=== PATIENT | female | born 1990 | race Caucasian/White ===

== ENCOUNTER → 2021-01-16 17:09 | Outpatient (CLI) | payer OTHER, SELFPAY ==
[2021-01-19 11:08] LABS: Chlamydia By Nucleic Acid AMP Negative (Negative)
[2021-01-21 15:02] LABS: Gonococcus By Nucleic Acid AMP Negative (Negative)
[2021-01-22 16:44] LABS: HPV APTIMA, High Risk Negative (Negative)
== END ==
PROVIDERS: PCP Family Medicine; Visit Provider Obstetrics & Gynecology
DX: Z34.80 Encounter for supervision of other normal pregnancy, unspecified trimester (principal)
CPT/HCPCS: 87491; 87591; 87624; 88175; G0145

== ENCOUNTER → 2021-02-04 15:34 | Outpatient (CLI) | payer OTHER, SELFPAY ==
[2021-02-04 15:57] LABS: Absolute Lymphocyte Count 3.18 X10^3/uL (0.83-4.51); Basophil# 0.05 X10^3/uL; Basophil% 0.5 % (0-1); Eosinophil# 0.15 X10^3/uL; Eosinophils% 1.6 % (0-5); Hematocrit 36.4 % (37-47); Hemoglobin 12.1 g/dL (12.0-15.0); Lymphocyte # 3.18 X10^3/ul (0.83-4.51); Lymphocyte % 34.4 % (19-41); Mean Corp Hgb Conc 33.2 g/dL (32-36); Mean Corpuscular Hgb 30.3 pg (27.0-32.0); Mean Corpuscular Volume 91.2 fL (81-99); Mean Platelet Vol. 9.1 fl (6.2-12.0); Monocyte# 0.82 X10^3/uL; Monocyte% 8.9 % (0-10); NRBC Flagged by Analyzer 0 % (0-5); Neutrophil # 5.02 X10^3/uL (2.7-7.7); Neutrophil % 54.4 % (47-70); Platelet Count 316 K/mm3 (150-450); RBC Distribution Width CV 13.4 % (11.6-14.6); RBC Distribution Width SD 45.1 fl (35.1-43.9); Red Blood Count 3.99 M/mm3 (4.2-5.4); White Blood Count 9.2 K/mm3 (4.4-11.0)
[2021-02-04 16:49] LABS: NATERA MAILED SPECIMEN
[2021-02-05 08:57] LABS: HIV - WCH Non-Reactive (Nonreactive); Hepatitis B Surface Antigen Non-Reactive (Nonreactive); Hepatitis C Antibody Non-Reactive (Nonreactive); Rubella IgG Reactive (Nonreactive); Syphilis Antibodies Non-reactive
== END ==
LOC: PAVLAB 15:36
PROVIDERS: PCP Family Medicine; Referring Provider Obstetrics & Gynecology; Visit Provider Obstetrics & Gynecology
DX: Z34.80 Encounter for supervision of other normal pregnancy, unspecified trimester (principal)
CPT/HCPCS: 36415; 85025; 86703; 86762; 86780; 86803; 86850; 86900; 86901; 87340

== ENCOUNTER → 2021-02-14 18:19 | Outpatient (CLI) | payer OTHER, SELFPAY ==
[2021-02-14 18:39] LABS: Amphetamine Urine VISTA NEGATIVE (<1000 ng/mL); Barbiturate Urine VISTA NEGATIVE (< 200 ng/mL); Benzodiazepine Urine VISTA NEGATIVE (< 200 ng/mL); Cocaine Urine VISTA NEGATIVE (< 300 ng/mL); Ecstacy Urine VISTA NEGATIVE (< 500 ng/mL); Methadone Urine VISTA NEGATIVE (< 300 ng/mL); PCP Urine VISTA NEGATIVE (< 25 ng/mL); THC Urine VISTA NEGATIVE (< 50 ng/mL); Vista UDS pH Range 6
== END ==
PROVIDERS: PCP Family Medicine; Visit Provider Obstetrics & Gynecology
DX: Z34.80 Encounter for supervision of other normal pregnancy, unspecified trimester (principal)
CPT/HCPCS: 80307; 87086; 87088

== ENCOUNTER 2021-06-07 08:14 | Outpatient (CLI) | payer OTHER, SELFPAY ==
[2021-06-07 08:51] LABS: Absolute Lymphocyte Count 1.88 X10^3/uL (0.83-4.51); Absolute Neutrophil Count 6.1 X10^3/uL (2.0-7.7); Basophil# 0.04 X10^3/uL; Basophil% 0.4 % (0-1); Eosinophil# 0.22 X10^3/uL; Eosinophils% 2.5 % (0-5); Hematocrit 32.2 % (37-47); Hemoglobin 10.2 g/dL (12.0-15.0); Lymphocyte # 1.88 X10^3/ul (0.83-4.51); Lymphocyte % 21.1 % (19-41); Mean Corp Hgb Conc 31.7 g/dL (32-36); Mean Corpuscular Hgb 29.6 pg (27.0-32.0); Mean Corpuscular Volume 93.3 fL (81-99); Mean Platelet Vol. 9.5 fl (6.2-12.0); Monocyte# 0.64 X10^3/uL; Monocyte% 7.2 % (0-10); NRBC Flagged by Analyzer 0 % (0-5); Neutrophil # 6.08 X10^3/uL (2.7-7.7); Neutrophil % 68.4 % (47-70); Platelet Count 374 K/mm3 (150-450); RBC Distribution Width CV 13.2 % (11.6-14.6); RBC Distribution Width SD 45.3 fl (35.1-43.9); Red Blood Count 3.45 M/mm3 (4.2-5.4); White Blood Count 8.9 K/mm3 (4.4-11.0)
[2021-06-07 09:12] LABS: Glucose Challenge Gest 1H 50g 103 mg/dL (70-140)
== END 2021-06-07 23:59 | disposition home or self-care (01) ==
LOC: PAVLAB 08:15
PROVIDERS: PCP Family Medicine; Referring Provider Obstetrics & Gynecology; Visit Provider Obstetrics & Gynecology
DX: Z34.80 Encounter for supervision of other normal pregnancy, unspecified trimester (principal)
CPT/HCPCS: 36415; 82950; 85025

== ENCOUNTER → 2021-08-02 | Outpatient (CLI) | payer OTHER, SELFPAY | END | disposition home or self-care (01) | PROVIDERS: PCP Family Medicine; Visit Provider Obstetrics & Gynecology | DX: Z34.93 Encounter for supervision of normal pregnancy, unspecified, third trimester (principal) | CPT/HCPCS: 87081 ==

== ENCOUNTER 2021-08-23 15:52 | Outpatient (CLI) | payer OTHER, SELFPAY ==
[2021-08-23] VITALS (10 sets, daily range): BP systolic 109–124; BP diastolic 71–86; PULSE 86–112; TEMP 37.7; O2SAT 100; BMI 28.8
[2021-08-23 17:09] LABS: Hematocrit 32.3 % (37-47); Hemoglobin 10.1 g/dL (12.0-15.0); Mean Corp Hgb Conc 31.3 g/dL (32-36); Mean Corpuscular Hgb 25.7 pg (27.0-32.0); Mean Corpuscular Volume 82.2 fL (81-99); Mean Platelet Vol. 11.2 fl (6.2-12.0); Platelet Count 313 K/mm3 (150-450); RBC Distribution Width CV 16.7 % (11.6-14.6); RBC Distribution Width SD 49.2 fl (35.1-43.9); Red Blood Count 3.93 M/mm3 (4.2-5.4); White Blood Count 9.4 K/mm3 (4.4-11.0)
[2021-08-23 17:28] LABS: AST(SGOT) 39 U/L (15-37); Alanine Aminotransfer ALT/SGPT 25 U/L (13-56); Creatinine, Serum 0.71 mg/dL (0.55-1.02); EST Glomerular Filtration Rate 101 mL/min (>60); Est Glom Filt Rate - Afr Amer 122 mL/min (>60); Estimated Creatinine Clearance 85.84 ml/min; Uric Acid 5.5 mg/dL (2.6-6.0)
[2021-08-23 17:42] LABS: Creatinine, Urine (random) < 13.00 mg/dL (NO RANGE EST.); Protein, Urine (Random) < 6.0 mg/dL (<11.9)
--- NOTE | 2021-08-24 15:19 | OB.TRI.PN_ITS ---
Progress Notes Progress Note: Patient presents for triage evaluation secondary to headache elevated bps in office FHT: 130 Moderate variability reactive no decelerations category I tracing [place]: no regular Contractions Assessment and plan: complex migraine Reactive NST, symptoms resolved all normal bps. borderline ast all other labs WNL negative urine protein normal bps. reassuring maternal and status patient discharged to home to follow-up in 24 hours, send home with 24 hour urine, repeat labs tomorrow. See problem list details for additional plan information. Laboratory Studies: Laboratory Tests 08/23/21 08/23/21 08/23/21 Range/Units 16:25 16:25 16:25 WBC (4.4-11.0) K/mm3 RBC (4.2-5.4) M/mm3 Hgb (12.0-15.0) g/dL Hct (37-47) % MCV (81-99) fL MCH (27.0-32.0) pg MCHC (32-36) g/dL RDW Std Deviation (35.1-43.9) fl RDW Coeff of Simon (11.6-14.6) % Plt Count (150-450) K/mm3 MPV (6.2-12.0) fl Creatinine 0.71 (0.55-1.02) mg/dL Estim Creat Clear Calc 85.84 ml/min Est GFR (MDRD) Af Amer 122 (>60) mL/min Est GFR (MDRD) Non-Af 101 (>60) mL/min Uric Acid 5.5 (2.6-6.0) mg/dL AST 39 H (15-37) U/L ALT 25 (13-56) U/L U Random Total Protein < 6.0 (<11.9) mg/dL Urine Creatinine < 13.00 (NO RANGE EST.) mg/dL Protein/Creatinin Ratio TNP Blood Type O POSITIVE Antibody Screen NEGATIVE 08/23/21 Range/Units 16:25 WBC 9.4 (4.4-11.0) K/mm3 RBC 3.93 L (4.2-5.4) M/mm3 Hgb 10.1 L (12.0-15.0) g/dL Hct 32.3 L (37-47) % MCV 82.2 (81-99) fL MCH 25.7 L (27.0-32.0) pg MCHC 31.3 L (32-36) g/dL RDW Std Deviation 49.2 H (35.1-43.9) fl RDW Coeff of Simon 16.7 H (11.6-14.6) % Plt Count 313 (150-450) K/mm3 MPV 11.2 (6.2-12.0) fl Creatinine (0.55-1.02) mg/dL Estim Creat Clear Calc ml/min Est GFR (MDRD) Af Amer (>60) mL/min Est GFR (MDRD) Non-Af (>60) mL/min Uric Acid (2.6-6.0) mg/dL AST (15-37) U/L ALT (13-56) U/L U Random Total Protein (<11.9) mg/dL Urine Creatinine (NO RANGE EST.) mg/dL Protein/Creatinin Ratio Blood Type Antibody Screen Charges/Coding Procedures Urinary/Genital 52xxx-59xxx: 21709-89 non-stress test Interp Multi Select Codes Visit Charges Office Visit/Consults: 20121 OV L3 Est
== END 2021-08-23 18:50 | disposition home or self-care (01) ==
LOC: WPOUT 16:01 → WP 16:02
PROVIDERS: PCP Family Medicine; Referring Provider Obstetrics & Gynecology; Visit Provider Obstetrics & Gynecology
DX: O99.350 Diseases of the nervous system complicating pregnancy, unspecified trimester (principal); G43.909 Migraine, unspecified, not intractable, without status migrainosus; Z3A.00 Weeks of gestation of pregnancy not specified
CPT/HCPCS: 36415; 59025; 59050; 82565; 82570; 84156; 84450; 84460; 84550; 85027; 86850; 86900; 86901; 99218; G0378

== ENCOUNTER 2021-08-24 18:15 | Outpatient (CLI) | payer OTHER, SELFPAY ==
[2021-08-24 18:40] LABS: Hematocrit 31.1 % (37-47); Hemoglobin 9.1 g/dL (12.0-15.0); Mean Corp Hgb Conc 29.3 g/dL (32-36); Mean Corpuscular Hgb 24.3 pg (27.0-32.0); Mean Corpuscular Volume 83.2 fL (81-99); Mean Platelet Vol. 10.8 fl (6.2-12.0); Platelet Count 266 K/mm3 (150-450); RBC Distribution Width CV 16.8 % (11.6-14.6); RBC Distribution Width SD 49.9 fl (35.1-43.9); Red Blood Count 3.74 M/mm3 (4.2-5.4)
[2021-08-24 18:42] VITALS: BP 119/83; PULSE 88
[2021-08-24 18:44] VITALS: BMI 29.2
[2021-08-24 18:57] LABS: AST(SGOT) 60 U/L (15-37); Alanine Aminotransfer ALT/SGPT 28 U/L (13-56); Creatinine, Serum 0.72 mg/dL (0.55-1.02); EST Glomerular Filtration Rate 99 mL/min (>60); Est Glom Filt Rate - Afr Amer 120 mL/min (>60); Estimated Creatinine Clearance 84.65 ml/min; Uric Acid 5.9 mg/dL (2.6-6.0)
[2021-08-24 20:34] VITALS: PULSE 82; O2SAT 100
[2021-08-24 20:35] VITALS: TEMP 36.7
[2021-08-24 20:36] VITALS: BP 129/88; PULSE 83
[2021-08-24 21:03] LABS: 24 Hour Urine Protein 153.9 mg/24HR (<150 MG/24HR); 24HR. UA Prot. Total Volume 1350 mL; Urine Protein (24 Hour) 11.4 mg/dL (<11.9)
--- NOTE | 2021-08-27 07:45 | OB.TRI.HP_ITS ---
HPI - General HPI Narrative NANCY HARRIS, is a 31 F who presents for follow up of abnormal labs. patient is asymptomatic and denies any new symptoms. normal bps. Maternal Data Information CALLUM Calculator Estimated Delivery Date Method Current WG Current Estimate 08/28/21 LMP (Certain) 39w 6d Other Estimates 08/29/21 Ultrasound #1 39w 5d PFSH PFSH Home Medications multivitamin no.47-iron fum 27 mg-folate no.1 1 mg-dha 300 mg capsule (PNV-DHA) 1 cap PO DAILY 01/08/21 [History Last Taken 08/22/21 08:00] sertraline 50 mg tablet (Zoloft) 50 mg PO DAILY 01/08/21 [History Last Taken 08/24/21 08:00] Tums 2 tab PO/SL PRN PRN Heartburn 08/24/21 [History Last Taken 08/24/21 15:00] famotidine 20 mg tablet (Pepcid AC) 20 mg PO DAILY 08/24/21 [History Last Taken 08/23/21 21:00] Allergy/AdvReac Type Severity Reaction Status Date / Time Sulfa (Sulfonamide Allergy Intermediate Hives Verified 08/24/21 18:46 Antibiotics) Family History Mother Myotonic muscular dystrophy Grandfather Myotonic muscular dystrophy Surgical History Hx of cholecystectomy Social History household members: family housing: house number of children: 1 current occupational status: employed 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 Date Name GA/Weeks Outcome Route Bth Weight Gen Labor Lgth Anesthesia Del Locatn Provider FOB 11/12/17 Haily 42 live - full term 6lbs 12oz Female over 36 hours epidural [facility] Jono Delivery Date: 11/12/17 Last Updated by: Madeleine Greer IoL Visit Details Expected Delivery Route/Plan Labor Preferences- CB/BF classes: no labor support person:Jono labor intervention preferences: [] pain management options preferred: epidural cut cord/dad catch: yes : yes PP control planned: discussed discussed possible routes of delivery and associated risks: [] special requests: [] Plans Covid status: completed series Flu vaccine: discussed Tdap vaccine: given Rhogam: na LARC form signed: yes movement and labor precautions reviewed. Problem list reviewed and updated with the most current plan of care details and appropriate orders placed. Relevant counseling for the gestational age provided. Continue routine care and follow up unless otherwise noted in visit notes/problem list details OB Flowsheet Initial Weight: Not Recorded Date -?-?-?-?-?-?-?-?-?-?-?-?- EGA Weight BP Urine Prot -?-?-?-?-?-?-?-?-?-?-?-?- Glucose FHR FuHt Pres Dilation -?-?-?-?-?-?-?-?-?-?-?-?- Effaced St Visit Note 01/16/21 -?-?-?-?-?-?-?-?-?-?-?-?- 8w 0d 136 lb 118/62 -?-?-?-?-?-?-?-?-?-?-?-?- 160 -?-?-?-?-?-?-?-?-?-?-?-?- JV- CRL 7w6d, ED D 08/28/2020 per LMP. Pap done today 02/14/21 -?-?-?-?-?-?-?-?-?-?-?-?- 12w 1d 136 lb 120/80 Negative -?-?-?-?-?-?-?-?-?-?-?-?- Negative 153 -?-?-?-?-?-?-?-?-?-?-?-?- JV- no lof, vagi nal bleeding, or cramping. No complaints. zoloft working well. 03/21/21 -?-?-?-?-?-?-?-?-?-?-?-?- 17w 1d 140 lb 2 oz 110/80 Nega tive -?-?-?-?-?-?-?-?-?-?-?-?- Negative 135 -?-?-?-?-?-?-?-?-?-?-?-?- JV- no lof, vagi nal bleeding, or spotting. compression stockings recommended. anatomy scan in 2 weeks 04/18/21 -?--?-?-?-?-?-?-?-?-?-?-?- 21w 1d 143 lb 8 oz 100/72 Nega tive -?-?-?-?-?-?-?-?-?-?-?-?- Negative 137 21 -?-?-?-?-?-?-?-?-?-?-?-?- JV- no lof, vagi nal bleeding, or dec fm. 05/16/21 -?-?-?-?-?-?-?-?-?-?-?-?- 25w 1d 150 lb 4 oz 106/78 Nega tive -?-?-?-?-?-?-?-?-?-?-?-?- Negative 127 28 -?-?-?-?-?-?-?-?-?-?-?-?- JV- gct ordered. no complaints today. + Fm 06/07/21 -?-?-?-?-?-?-?-?-?-?-?-?- 28w 2d 148 lb 4 oz 110/80 Nega tive -?-?-?-?-?-?-?--?-?-?-?-?- Negative 134 28 -?-?-?-?-?-?-?-?-?-?-?-?- JV- GCT today. p epcid bid for indigestion. pt wants to take OTC dose. doing well with zoloft. 06/21/21 -?-?-?-?-?-?-?-?-?-?-?-?- 30w 2d 149 lb 8 oz 110/80 -?-?-?-?-?-?-?-?-?-?-?-?- -?-?-?-?-?-?-?-?-?-?-?-?- 07/04/21 -?-?-?-?-?-?-?-?-?-?-?-?- 32w 1d 151 lb 128/80 Negative -?-?-?-?-?-?-?-?-?-?-?-?- Negative 131 32 -?-?-?-?-?-?-?-?-?-?-?-?- MH-No VB, LOF. G ood FM. tdap. Denies concerns 07/17/21 -?-?-?-?-?-?-?-?-?-?-?-?- 34w 0d 151 lb 4 oz 120/78 Nega tive -?-?-?-?-?-?-?-?-?-?-?-?- Negative 124 33 -?-?-?-?-?-?-?-?-?-?-?-?- JV- no lof, vagi nal bleed or dec fm. has a small pimple on left groin. [facility] 08/[facility]/21 -?-?-?-?-?-?-?-?-?-?-?-?- 36w 2d 152 lb 120/72 Negative -?-?-?-?-?-?-?-?-?-?-?-?- Negative 130 36 Cephalic 0 .5 -?-?-?-?-?-?-?-?-?-?-?-?- Sm- no vb lof go od fm no regular ctx gbd today 08/09/21 -?-?-?-?-?-?-?-?-?-?-?-?- 37w 2d 154 lb 138/84 109/77 Negative -?-?-?-?-?-?-?-?-?-?-?-?- Negative 134 37 -?-?-?-?--?-?-?-?-?-?-?-?- JV- no lof, vagi nal bleeding, or dec fm. no complaints other than headache yesterday. bp normal. no proteinuria 08/16/21 -?-?-?-?-?-?-?-?-?-?-?-?- 38w 2d 153 lb 2 oz 124/78 Nega tive -?-?-?-?-?-?-?-?-?-?-?-?- Negative 120 36 Cephalic 1 -?-?-?-?-?-?-?-?-?-?-?-?- 70 -2 JV- labor precautions discussed. no complaints. 08/23/21 -?-?-?-?-?-?-?-?-?-?-?-?- 39w 2d 152 lb 6 oz 142/90 -?-?-?-?-?-?-?-?-?-?-?-?- 130 Cephalic 1 -?-?-?-?-?-?-?-?-?--?-?-?- SM- no vb lof go od fm no regular ctx. co vision changes and headache, numbness in her leg and hand, tongue. 08/24/21 -?-?-?-?-?-?-?-?-?-?-?-?- 39w 3d 154 lb 8.705 oz 119/ 83 129/88 -?-?-?-?-?-?-?-?-?-?-?-?- -?-?-?-?-?-?-?-?-?-?-?-?- 08/26/21 -?-?-?-?-?-?-?-?-?-?-?-?- 39w 5d 156 lb 112/72 -?-?-?-?-?-?-?-?-?-?-?-?- 120 1.5 -?-?-?-?-?-?-?-?-?-?-?-?- 60 -2 SM- BEARD and neuro symptoms had all resolved and normal over weekend, small BEARD this morning improved with tylenol co hip pain irregular ctx. repeat labs improving. reviewed preeclampsia precautions kick counts labor precautions fu thursday NST FHR Rate Baby A Baseline: 120 Variability:: Moderate Accelerations:: 15 x 15 Decelerations:: None NST Reactive:: Yes FHR Category:: Category I Uterine Activity:: no regular Assessment & Plan (1) Elevated liver enzymes: COMMENT: improving, fu thursday in office. asymptomatic PLAN: Plan continue to follow, negative protein in urine patient asymptomatic suspect GI in origin virral illness, reviewed preeclampsia precautions fu in office thursday Charges/Coding Procedures Urinary/Genital 52xxx-59xxx: 57146-83 non-stress test Interp
--- NOTE | 2021-08-27 07:45 | OB.TRI.NOTE ---
HPI - General HPI Narrative NANCY HARRIS, is a 31 F who presents for follow up of abnormal labs. patient is asymptomatic and denies any new symptoms. normal bps. Maternal Data Information CALLUM Calculator Estimated Delivery Date Method Current WG Current Estimate 08/28/21 LMP (Certain) 39w 6d Other Estimates 08/29/21 Ultrasound #1 39w 5d PFSH PFSH Home Medications multivitamin no.47-iron fum 27 mg-folate no.1 1 mg-dha 300 mg capsule (PNV-DHA) 1 cap PO DAILY 01/08/21 [History Last Taken 08/22/21 08:00] sertraline 50 mg tablet (Zoloft) 50 mg PO DAILY 01/08/21 [History Last Taken 08/24/21 08:00] Tums 2 tab PO/SL PRN PRN Heartburn 08/24/21 [History Last Taken 08/24/21 15:00] famotidine 20 mg tablet (Pepcid AC) 20 mg PO DAILY 08/24/21 [History Last Taken 08/23/21 21:00] Allergy/AdvReac Type Severity Reaction Status Date / Time Sulfa (Sulfonamide Allergy Intermediate Hives Verified 08/24/21 18:46 Antibiotics) Family History Mother Myotonic muscular dystrophy Grandfather Myotonic muscular dystrophy Surgical History Hx of cholecystectomy Social History household members: family housing: house number of children: 1 current occupational status: employed 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 Date Name GA/Weeks Outcome Route Bth Weight Gen Labor Lgth Anesthesia Del Locatn Provider FOB 11/12/17 Haily 42 live - full term 6lbs 12oz Female over 36 hours epidural [facility] Jono Delivery Date: 11/12/17 Last Updated by: Madeleine Greer IoL Visit Details Expected Delivery Route/Plan Labor Preferences- CB/BF classes: no labor support person:Jono labor intervention preferences: [] pain management options preferred: epidural cut cord/dad catch: yes : yes PP control planned: discussed discussed possible routes of delivery and associated risks: [] special requests: [] Plans Covid status: completed series Flu vaccine: discussed Tdap vaccine: given Rhogam: na LARC form signed: yes movement and labor precautions reviewed. Problem list reviewed and updated with the most current plan of care details and appropriate orders placed. Relevant counseling for the gestational age provided. Continue routine care and follow up unless otherwise noted in visit notes/problem list details OB Flowsheet Initial Weight: Not Recorded Date <del>?</del> EGA Weight BP Urine Prot <del>?</del> Glucose FHR FuHt Pres Dilation <del>?</del> Effaced St Visit Note 01/16/21 <del>?</del> 8w 0d 136 lb 118/62 <del>?</del> 160 <del>?</del> JV- CRL 7w6d, CALLUM 08/28/2020 per LMP. Pap done today 02/14/21 <del>?</del> 12w 1d 136 lb 120/80 Negative <del>?</del> Negative 153 <del>?</del> JV- no lof, vaginal bleeding, or cramping. No complaints. zoloft working well. 03/21/21 <del>?</del> 17w 1d 140 lb 2 oz 110/80 Negative <del>?</del> Negative 135 <del>?</del> JV- no lof, vaginal bleeding, or spotting. compression stockings recommended. anatomy scan in 2 weeks 04/18/21 <del>?</del> 21w 1d 143 lb 8 oz 100/72 Negative <del>?</del> Negative 137 21 <del>?</del> JV- no lof, vaginal bleeding, or dec fm. 05/16/21 <del>?</del> 25w 1d 150 lb 4 oz 106/78 Negative <del>?</del> Negative 127 28 <del>?</del> JV- gct ordered. no complaints today. + Fm 06/07/21 <del>?</del> 28w 2d 148 lb 4 oz 110/80 Negative <del>?</del> Negative 134 28 <del>?</del> JV- GCT today. pepcid bid for indigestion. pt wants to take OTC dose. doing well with zoloft. 06/21/21 <del>?</del> 30w 2d 149 lb 8 oz 110/80 <del>?</del> <del>?</del> 07/04/21 <del>?</del> 32w 1d 151 lb 128/80 Negative <del>?</del> Negative 131 32 <del>?</del> MH-No VB, LOF. Good FM. tdap. Denies concerns 07/17/21 <del>?</del> 34w 0d 151 lb 4 oz 120/78 Negative <del>?</del> Negative 124 33 <del>?</del> JV- no lof, vaginal bleed or dec fm. has a small pimple on left groin. recommend [facility] salt baths. 08/02/21 <del>?</del> 36w 2d 152 lb 120/72 Negative <del>?</del> Negative 130 36 Cephalic 0.5 <del>?</del> Sm- no vb lof good fm no regular ctx gbd today 08/09/21 <del>?</del> 37w 2d 154 lb 138/84 109/77 Negative <del>?</del> Negative 134 37 <del>?</del> JV- no lof, vaginal bleeding, or dec fm. no complaints other than headache yesterday. bp normal. no proteinuria 08/16/21 <del>?</del> 38w 2d 153 lb 2 oz 124/78 Negative <del>?</del> Negative 120 36 Cephalic 1 <del>?</del> 70 -2 JV- labor precautions discussed. no complaints. 08/23/21 <del>?</del> 39w 2d 152 lb 6 oz 142/90 <del>?</del> 130 Cephalic 1 <del>?</del> SM- no vb lof good fm no regular ctx. co vision changes and headache, numbness in her leg and hand, tongue. 08/24/21 <del>?</del> 39w 3d 154 lb 8.705 oz 119/83 129/88 <del>?</del> <del>?</del> 08/26/21 <del>?</del> 39w 5d 156 lb 112/72 <del>?</del> 120 1.5 <del>?</del> 60 -2 SM- BEARD and neuro symptoms had all resolved and normal over weekend, small BEARD this morning improved with tylenol co hip pain irregular ctx. repeat labs improving. reviewed preeclampsia precautions kick counts labor precautions fu thursday NST FHR Rate Baby A Baseline: 120 Variability:: Moderate Accelerations:: 15 x 15 Decelerations:: None NST Reactive:: Yes FHR Category:: Category I Uterine Activity:: no regular Assessment & Plan (1) Elevated liver enzymes: COMMENT: improving, fu thursday in office. asymptomatic PLAN: Plan continue to follow, negative protein in urine patient asymptomatic suspect GI in origin virral illness, reviewed preeclampsia precautions fu in office thursday Charges/Coding Procedures Urinary/Genital 52xxx-59xxx: 33382-68 non-stress test Interp
[2021-11-11 10:00] LABS: 24H Urine Creat. Total Vol. 1.35 L; 24HR. Urine Creatinine 0.72 g/24 HR (0.70-1.90)
== END 2021-08-24 21:30 | disposition home or self-care (01) ==
LOC: WPOUT 18:18 → WP 18:19
PROVIDERS: PCP Family Medicine; Visit Provider Obstetrics & Gynecology
DX: O99.891 Other specified diseases and conditions complicating pregnancy (principal); R74.8 Abnormal levels of other serum enzymes; Z79.899 Other long term (current) drug therapy; Z87.891 Personal history of nicotine dependence; Z3A.39 39 weeks gestation of pregnancy
CPT/HCPCS: 36415; 59025; 59050; 81050; 82565; 82570; 84156; 84450; 84460; 84550; 85027; 99218; G0378

== ENCOUNTER → 2021-08-26 | Outpatient (CLI) | payer OTHER, SELFPAY ==
[2021-08-26 10:29] LABS: Absolute Lymphocyte Count 2.16 X10^3/uL (0.83-4.51); Absolute Neutrophil Count 5.5 X10^3/uL (2.0-7.7); Basophil# 0.06 X10^3/uL; Basophil% 0.7 % (0-1); Eosinophil# 0.16 X10^3/uL; Eosinophils% 1.9 % (0-5); Hematocrit 34.3 % (37-47); Hemoglobin 10.1 g/dL (12.0-15.0); Lymphocyte # 2.16 X10^3/ul (0.83-4.51); Lymphocyte % 25.7 % (19-41); Mean Corp Hgb Conc 29.4 g/dL (32-36); Mean Corpuscular Hgb 24.3 pg (27.0-32.0); Mean Corpuscular Volume 82.7 fL (81-99); Mean Platelet Vol. 10.7 fl (6.2-12.0); Monocyte# 0.56 X10^3/uL; Monocyte% 6.7 % (0-10); NRBC Flagged by Analyzer 0 % (0-5); Neutrophil # 5.45 X10^3/uL (2.7-7.7); Neutrophil % 64.6 % (47-70); Platelet Count 300 K/mm3 (150-450); RBC Distribution Width CV 17.1 % (11.6-14.6); RBC Distribution Width SD 50.6 fl (35.1-43.9); Red Blood Count 4.15 M/mm3 (4.2-5.4); White Blood Count 8.4 K/mm3 (4.4-11.0)
[2021-08-26 11:00] LABS: ALB/GLOB Ratio 0.5 RATIO (0.9-2.4); AST(SGOT) 49 U/L (15-37); Alanine Aminotransfer ALT/SGPT 29 U/L (13-56); Albumin, Serum 2.3 g/dL (3.2-5.0); Alkaline Phosphatase 228 U/L (45-117); Anion Gap 7 (5-15); BUN 8 mg/dL (7-18); BUN/Creat Ratio 12.5 RATIO (10-20); Calcium,Total 9.1 mg/dL (8.5-10.1); Chloride 106 mmol/L (98-107); Creatinine, Serum 0.64 mg/dL (0.55-1.02); EST Glomerular Filtration Rate 114 mL/min (>60); Est Glom Filt Rate - Afr Amer 138 mL/min (>60); Globulin 4.3 g/dL (2.2-4.2); Glucose 97 mg/dL (74-106); Potassium 3.7 mmol/L (3.5-5.1); Protein, Total 6.6 g/dL (6.4-8.2); Sodium Level 136 mmol/L (136-145)
== END | disposition home or self-care (01) ==
LOC: PAVLAB 10:12
PROVIDERS: PCP Family Medicine; Referring Provider Obstetrics & Gynecology; Visit Provider Obstetrics & Gynecology
DX: R79.89 Other specified abnormal findings of blood chemistry (principal)
CPT/HCPCS: 36415; 80053; 85025

== ENCOUNTER 2021-08-29 20:58 | Inpatient (IN) | payer OTHER, SELFPAY ==
[2021-08-29] VITALS (11 sets, daily range): BP systolic 117–139; BP diastolic 61–89; PULSE 73–144; TEMP 36.8; O2SAT 88–100; BMI 28.9
[2021-08-29] MEDS: Lactated Ringers 1,000 ML 50 ML IV (21:10)
[2021-08-29 21:20] LABS: Absolute Lymphocyte Count 2.44 X10^3/uL (0.83-4.51); Absolute Neutrophil Count 6.1 X10^3/uL (2.0-7.7); Basophil# 0.05 X10^3/uL; Basophil% 0.5 % (0-1); Eosinophil# 0.08 X10^3/uL; Eosinophils% 0.8 % (0-5); Hemoglobin 9.9 g/dL (12.0-15.0); Lymphocyte # 2.44 X10^3/ul (0.83-4.51); Lymphocyte % 25.5 % (19-41); Mean Corpuscular Hgb 24.3 pg (27.0-32.0); Mean Corpuscular Volume 80.9 fL (81-99); Mean Platelet Vol. 11.1 fl (6.2-12.0); Monocyte# 0.83 X10^3/uL; Monocyte% 8.7 % (0-10); NRBC Flagged by Analyzer 0.2 % (0-5); Neutrophil # 6.14 X10^3/uL (2.7-7.7); Neutrophil % 64.2 % (47-70); Platelet Count 317 K/mm3 (150-450); RBC Distribution Width CV 17.3 % (11.6-14.6); RBC Distribution Width SD 49.8 fl (35.1-43.9); Red Blood Count 4.08 M/mm3 (4.2-5.4); White Blood Count 9.6 K/mm3 (4.4-11.0)
[2021-08-29] MEDS: LACTATED RINGERS 500 ML 999 ML IV (21:40)
[2021-08-29 21:55] LABS: ALB/GLOB Ratio 0.5 RATIO (0.9-2.4); AST(SGOT) 34 U/L (15-37); Alanine Aminotransfer ALT/SGPT 26 U/L (13-56); Albumin, Serum 2.3 g/dL (3.2-5.0); Alkaline Phosphatase 237 U/L (45-117); Anion Gap 9 (5-15); BUN 9 mg/dL (7-18); BUN/Creat Ratio 13.6 RATIO (10-20); Calcium,Total 9.8 mg/dL (8.5-10.1); Chloride 106 mmol/L (98-107); Creatinine, Serum 0.66 mg/dL (0.55-1.02); EST Glomerular Filtration Rate 110 mL/min (>60); Est Glom Filt Rate - Afr Amer 133 mL/min (>60); Estimated Creatinine Clearance 92.34 ml/min; Globulin 4.3 g/dL (2.2-4.2); Glucose 86 mg/dL (74-106); Potassium 3.6 mmol/L (3.5-5.1); Protein, Total 6.6 g/dL (6.4-8.2); Sodium Level 137 mmol/L (136-145)
[2021-08-29] MEDS: Oxytocin 30 units/NS 500 ml 30 UNITS/500 ML IV.SOLN 334 UNITS IV (22:11)
[2021-08-29] MEDS: Methylergonovine 0.2 MG/ML Ampul IM (22:16)
--- NOTE | 2021-08-29 22:39 | HP.PCM.OB_ITS ---
HPI - General General Date of Admission: 08/29/21 HPI Narrative NANCY HARRIS, is a 31 F who presents IAL 9 cm with regular ctx no vb lof. good fm delivers within 1 hour of presentation Maternal Data Information CALLUM Calculator Estimated Delivery Date Method Current WG Current Estimate 08/28/21 LMP (Certain) 40w 1d Other Estimates 08/29/21 Ultrasound #1 40w 0d PFSH PFSH Medical History (Updated 08/29/21 @ 22:[address] Mariposa Thorne MD) Anxiety Depression Home Medications multivitamin no.47-iron fum 27 mg-folate no.1 1 mg-dha 300 mg capsule (PNV-DHA) 1 cap PO DAILY Check with primary doctor 01/08/21 [History Last Taken 08/22/21 08:00] sertraline 50 mg tablet (Zoloft) 50 mg PO DAILY Check with primary doctor 01/08/21 [History Last Taken 08/28/21] Tums 2 tab PO/SL PRN PRN Heartburn 08/24/21 [History Last Taken 08/24/21 15:00] famotidine 20 mg tablet (Pepcid AC) 20 mg PO DAILY Check with primary doctor 08/24/21 [History Last Taken 08/23/21 21:00] Allergy/AdvReac Type Severity Reaction Status Date / Time Sulfa (Sulfonamide Allergy Intermediate Hives Verified 08/24/21 18:46 Antibiotics) Family History Mother Myotonic muscular dystrophy Grandfather Myotonic muscular dystrophy Surgical History Hx of cholecystectomy Social History household members: family housing: house number of children: 1 current occupational status: employed 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 Date Name GA/Weeks Outcome Route Bth Weight Infant Gen Labor Lgth Anesthesia Del Locatn Provider FOB 11/12/17 Haily 42 live - full term 6lbs 12oz Female over 36 hours epidural [facility] Jono Delivery Date: 11/12/17 Last Updated by: Madeleine Greer IoL Visit Details Expected Delivery Route/Plan Labor Preferences- CB/BF classes: no labor support person:Jono labor intervention preferences: [] pain management options preferred: epidural cut cord/dad catch: yes : yes PP control planned: discussed discussed possible routes of delivery and associated risks: [] special requests: [] Plans Covid status: completed series Flu vaccine: discussed Tdap vaccine: given Rhogam: na LARC form signed: yes movement and labor precautions reviewed. Problem list reviewed and updated with the most current plan of care details and appropriate orders placed. Relevant counseling for the gestational age provided. Continue routine care and follow up unless otherwise noted in visit notes/problem list details OB Flowsheet Initial Weight: Not Recorded Date -?-?-?-?-?-?-?-?-?-?-?-?- EGA Weight BP Urine Prot -?-?-?-?-?-?-?-?-?-?-?-?- Glucose FHR FuHt Pres Dilation -?-?-?-?-?-?-?-?-?-?-?-?- Effaced St Visit Note 01/16/21 -?-?-?-?-?-?-?-?-?-?-?-?- 8w 0d 136 lb 118/62 -?-?-?-?-?-?-?-?-?-?-?-?- 160 -?-?-?-?-?-?-?-?-?-?-?-?- JV- CRL 7w6d, ED D 08/28/2020 per LMP. Pap done today 02/14/21 -?-?-?-?-?-?-?-?-?-?-?-?- 12w 1d 136 lb 120/80 Negative -?-?-?-?-?-?-?-?-?-?-?-?- Negative 153 -?-?-?-?-?-?-?-?-?-?-?-?- JV- no lof, vagi nal bleeding, or cramping. No complaints. zoloft working well. 03/21/21 -?-?-?-?-?-?-?-?-?-?-?-?- 17w 1d 140 lb 2 oz 110/80 Nega tive -?-?-?-?-?-?-?-?-?-?-?-?- Negative 135 -?-?-?-?-?-?-?-?-?-?-?-?- JV- no lof, vagi nal bleeding, or spotting. compression stockings recommended. anatomy scan in 2 weeks 04/18/21 -?-?-?-?-?-?-?-?-?-?-?-?- 21w 1d 143 lb 8 oz 100/72 Nega tive -?-?-?-?-?-?-?-?-?-?-?-?- Negative 137 21 -?-?-?-?-?-?-?-?-?-?-?-?- JV- no lof, vagi nal bleeding, or dec fm. 05/16/21 -?-?-?-?-?-?-?-?-?-?-?-?- 25w 1d 150 lb 4 oz 106/78 Nega tive -?-?-?-?-?-?-?-?-?-?-?-?- Negative 127 28 -?-?-?-?-?-?-?-?-?-?-?-?- JV- gct ordered. no complaints today. + Fm 06/07/21 -?-?-?-?-?-?-?-?-?-?-?-?- 28w 2d 148 lb 4 oz 110/80 Nega tive -?-?-?-?-?-?-?-?-?-?-?-?- Negative 134 28 -?-?-?-?-?-?-?-?-?-?-?-?- JV- GCT today. p epcid bid for indigestion. pt wants to take OTC dose. doing well with zoloft. 06/21/21 -?-?-?-?-?-?-?-?-?-?-?-?- 30w 2d 149 lb 8 oz 110/80 -?-?-?-?-?-?-?-?-?-?-?-?- -?-?-?-?-?-?-?-?-?-?-?-?- 07/04/21 -?-?-?-?-?-?-?-?-?-?-?-?- 32w 1d 151 lb 128/80 Negative -?-?-?-?-?-?-?-?-?-?-?-?- Negative 131 32 -?-?-?-?-?-?-?-?-?-?-?-?- MH-No VB, LOF. G ood FM. tdap. Denies concerns 07/17/21 -?-?-?-?-?-?-?-?-?-?-?-?- 34w 0d 151 lb 4 oz 120/78 Nega tive -?-?-?-?-?-?-?-?-?-?-?-?- Negative 124 33 -?-?-?-?-?-?-?-?-?-?-?-?- JV- no lof, vagi nal bleed or dec fm. has a small pimple on left groin. [facility] -?-?-?-?-?-?-?-?-?-?-?-?- 36w 2d 152 lb 120/72 Negative -?-?-?-?-?-?-?-?-?-?-?-?- Negative 130 36 Cephalic 0 .5 -?-?-?-?-?-?-?-?-?-?-?-?- Sm- no vb lof go od fm no regular ctx gbd today 08/09/21 -?-?-?-?-?-?-?-?-?-?-?-?- 37w 2d 154 lb 138/84 109/77 Negative -?-?-?-?-?-?-?-?-?-?-?-?- Negative 134 37 -?-?-?-?-?-?-?-?-?-?-?-?- JV- no lof, vagi nal bleeding, or dec fm. no complaints other than headache yesterday. bp normal. no proteinuria 08/16/21 -?-?-?-?-?-?-?-?-?-?-?-?- 38w 2d 153 lb 2 oz 124/78 Nega tive -?-?-?-?-?-?-?-?-?-?-?-?- Negative 120 36 Cephalic 1 -?-?-?-?-?-?-?-?-?-?-?-?- 70 -2 JV- labor precautions discussed. no complaints. 08/23/21 -?-?-?-?-?-?-?-?-?-?-?-?- 39w 2d 152 lb 6 oz 142/90 -?--?-?-?-?-?-?-?-?-?-?-?- 130 Cephalic 1 -?-?-?-?-?-?-?-?-?-?-?-?- SM- no vb lof go od fm no regular ctx. co vision changes and headache, numbness in her leg and hand, tongue. 08/26/21 -?-?-?-?-?-?-?-?-?-?-?-?- 39w 5d 156 lb 112/72 -?-?-?-?-?-?-?-?-?-?-?-?- 120 1.5 -?-?-?-?-?-?-?-?-?-?-?-?- 60 -2 SM- BEARD and neuro symptoms had all resolved and normal over weekend, small BEARD this morning improved with tylenol co hip pain irregular ctx. repeat labs improving. reviewed preeclampsia precautions kick counts labor precautions fu thursday08/29/21 -?-?-?-?-?-?-?-?-?-?-?-?- 40w 1d 153 lb 139/89 -?-?-?-?-?-?-?-?-?-?-?-?- -?-?-?-?-?-?--?-?-?-?-?-?- NST FHR Rate Baby A Baseline: 120 Variability:: Moderate Accelerations:: 15 x 15 Decelerations:: None NST Reactive:: Yes FHR Category:: Category I Uterine Activity:: q3-5 ROS Constitutional Constitutional: Reports systems reviewed and no addt'l complaints, except as documented ENT HEENT: Reports systems reviewed and no addt'l complaints, except as documented Cardiovascular Cardiovascular: Reports systems reviewed and no addt'l complaints, except as documented Respiratory/Chest Respiratory/Chest: Reports systems reviewed and no addt'l complaints, except as documented Gastrointestinal Gastrointestinal: Reports systems reviewed and no addt'l complaints, except as documented and nausea; Denies abdominal pain Genitourinary Genitourinary: Reports systems reviewed and no addt'l complaints, except as documented, contractions Details: present and frequency (regular ) and movement Details: present Musculoskeletal Musculoskeletal: Reports systems reviewed and no addt'l complaints, except as documented Integumentary Integumentary: Reports as per HPI Neurologic Neurologic: Reports systems reviewed and no addt'l complaints, except as documented Endocrine Endocrinology: Reports systems reviewed and no addt'l complaints, except as documented Vital Signs Vital Signs Vital Signs: 08/29/21 20:48 08/29/21 20:48 08/29/21 21:03 Pulse Rate 102 H Blood Pressure 139/89 H BP Systolic 139 BP Diastolic 89 Pulse Ox 100 08/29/21 21:03 08/29/21 21:17 08/29/21 21:17 Pulse Rate 115 H 114 H Blood Pressure BP Systolic BP Diastolic Pulse Ox 88 08/29/21 21:17 08/29/21 21:17 08/29/21 21:57 Pulse Rate 104 H 114 H Blood Pressure BP Systolic BP Diastolic Pulse Ox 100 08/29/21 21:57 Pulse Rate Blood Pressure BP Systolic BP Diastolic Pulse Ox 93 Weight Weight: 153 lb Body Mass Index (BMI) 28.9 Physical Exam Const alert, oriented x3 and healthy appearing Constitutional Narrative: uncomfortable with contractions HEENT normocephalic and moist oral mucous membranes Head and Scalp: atraumatic Neck full ROM, no lymphadenopathy, supple and thyroid normal General: trachea midline Thyroid: thyroid normal Lymph Lymphatic: no lymphadenopathy noted Chest inspection of chest normal Resp normal respiratory effort Cardio regular rate GI normal to inspection, nondistended, normoactive bowel sounds, soft to palpation and non-tender Inspection: gravid external exam normal Bimanual Exam - Vag & Uterus: uterus non-tender Manual OB Exam: estimated gestational size appropriate, presentation cephalic, dilated, effaced and station Extremity normal to inspection General Extremity: Negative for edema Skin no rashes or lesions noted Neuro deep tendon reflexes 2+ bilaterally Motor Exam: strength 5/5 throughout and clonus absent Psych mental status grossly normal Labs Labs Labs: Blood Type O POSITIVE Antibody Screen NEGATIVE Hct 33.0 % (37-47) L Hgb 9.9 g/dL (12.0-15.0) L Syphilis Total Ab Non-reactive Rubella IgG Antibody Reactive (Nonreactive) Hep Bs Antigen Non-Reactive (Nonreactive) Chlamydia DNA (TYE) Negative (Negative) Neisseria gonorrhoeae DNA (TYE) Negative (Negative) HIV 1&2 Antibody Non-Reactive (Nonreactive) Glucose 1 Hr 50 gm 103 mg/dL (70-140) Assessment & Plan (1) Anemia affecting in third trimester: COMMENT: iron added (2) Family history of muscular dystrophy: COMMENT: mother & maternal grandfather have myotonic muscular dystrophy- pt consents to carrier testing this time, did not get tested last (3) Supervision of other normal : COMMENT: PRR CALLUM: 08/28/21 girl Dipak PC: Haily Spouse: fany De La Cruz 1hr gct (4) : QUALIFIERS: Weeks of gestation: 39 weeks Qualified Code(s): Z3A.39 - 39 weeks gestation of COMMENT: anatomy nl, low risk female NIPT; carrier- neg (5) Anxiety and depression: COMMENT: currently on Zoloft- is doing well PLAN: Plan admit IAL
--- NOTE | 2021-08-29 22:42 | EX.PCM.OBRPT ---
Assessment & Plan (1) Anemia affecting in third trimester: COMMENT: iron added (2) Family history of muscular dystrophy: COMMENT: mother & maternal grandfather have myotonic muscular dystrophy- pt consents to carrier testing this time, did not get tested last (3) Supervision of other normal : COMMENT: PRR CALLUM: 08/28/21 girl Dipak PC: Haily Spouse: Jono, nl 1hr gct (4) : QUALIFIERS: Weeks of gestation: 39 weeks Qualified Code(s): Z3A.39 - 39 weeks gestation of COMMENT: anatomy nl, low risk female NIPT; carrier- neg (5) Anxiety and depression: COMMENT: currently on Zoloft- is doing well (6) Vaginal delivery: COMMENT: 40 SM IAL girl Dipak mild atony Maternal Data Information CALLUM Calculator Estimated Delivery Date Method Current WG Current Estimate 08/28/21 LMP (Certain) 40w 1d Other Estimates 08/29/21 Ultrasound #1 40w 0d Vaginal Delivery Maternal Presentation Maternal Presentation: 31 yo presents IAL Operative Information Pre-Operative Diagnosis: IAL Post-Operative Diagnosis: same Surgery / Procedure Performed: Spontaneous Vaginal Delivery Type of Anesthesia: Epidural Special Medications: none Estimated Blood Loss: 100 Fluids Replaced: crystalloid Findings Description of Procedure: Patient began pushing and delivered the head in the CHAPO presentation. The head was delivered atraumatically and a loose nuchal cord ?1 was identified and the delivered through without complication. The anterior and posterior shoulders delivered without complication followed by the rest of the and the was placed on the maternal abdomen. Delayed cord clamping was employed for approximately 60 seconds. Cord was clamped and cut and gentle traction was applied to the cord and the placenta delivered spontaneously immediately following it was noted to be intact with three-vessel cord. The perineum and vagina were inspected and noted to have no laceration. EBL was 500cc with some atony, treated with massage and methergine, pitocin. Patient and tolerated delivery well. Presentation: CHAPO Amniotic Membrane Rupture Type: Artificial Amniotic Fluid Description: Clear Placental Delivery Description: Spontaneous Placenta Disposition: [facility] Cord Vessel Description: 3 Vessels Cord Entanglement: None Delayed Cord Clamping: Yes Post Vaginal Delivery Medications Given After Delivery: IV Pitocin and IM Methergin Episiotomy Description: None Laceration: None Complication Complications: None Procedures Urinary/Genital [id number]: [id number] Vaginal Delivery [facility]
--- NOTE | 2021-08-29 22:43 | DCINST_ITS ---
Discharge Instructions Diet Discharge Diet: No restrictions Activity Discharge Activity: Return to Normal Activity, May Drive, May Shower and May Take a Tub Bath (in 4 weeks) May resume sexual activity in: 6-8 weeks (after seen by OB provider) Weight Bearing Status: Full weight bearing Lifting Restrictions: none Dressing / Incision Call your doctor if you observe: Fever of 101 or Higher, Inability to urinate, Using more than 1 pad per hour (for more than 2 hours in a row or more), Shortness of breath, Dizziness, Chest pain and - (headache not controlled with tylenol, change in vision) Follow Up Care When: in 6 weeks for visit, call the office to make the appointment. If you had elevated blood pressures call the office to be seen within 1 week. Test Results: Test results from this visit will be discussed in further detail at your follow- up appointment, if applicable. Discharge Plan Admission Admit Date/Time: 08/29/21 20:58 Primary Reason for Your Visit: vaginal delivery Attending Provider: Mariposa Thorne Primary Care Provider: Miriam Ramsey Discharge Orders/Prescriptions Prescriptions: No Action sertraline [Zoloft] 50 mg tablet 50 mg PO DAILY PNV-DHA 27 mg iron-1 mg -300 mg capsule 1 cap PO DAILY famotidine [Pepcid AC] 20 mg Tablet 20 mg PO DAILY Tums 2 tab PO/SL PRN PRN (Reason: Heartburn) Referrals / Follow Up: Miriam Ramsey DO [Primary Care Provider] - Disposition Disposition (needs filled in before D/C Order can be placed): Home, Self Care
[2021-08-29] MEDS: Acetaminophen 500 MG Tablet 1000 MG PO (23:56)
[2021-08-30] VITALS (7 sets, daily range): BP systolic 109–123; BP diastolic 70–88; PULSE 82–101; RESP 16; TEMP 36.5–37.2; O2SAT 99
[2021-08-30 05:15] LABS: Absolute Lymphocyte Count 2.36 X10^3/uL (0.83-4.51); Absolute Neutrophil Count 13.5 X10^3/uL (2.0-7.7); Basophil# 0.05 X10^3/uL; Basophil% 0.3 % (0-1); Eosinophil# 0.03 X10^3/uL; Eosinophils% 0.2 % (0-5); Hematocrit 28.6 % (37-47); Hemoglobin 8.7 g/dL (12.0-15.0); Lymphocyte # 2.36 X10^3/ul (0.83-4.51); Mean Corp Hgb Conc 30.4 g/dL (32-36); Mean Corpuscular Hgb 24.6 pg (27.0-32.0); Mean Platelet Vol. 10.8 fl (6.2-12.0); Monocyte# 0.81 X10^3/uL; Monocyte% 4.8 % (0-10); NRBC Flagged by Analyzer 0.1 % (0-5); Neutrophil # 13.48 X10^3/uL (2.7-7.7); Neutrophil % 80.2 % (47-70); Platelet Count 281 K/mm3 (150-450); RBC Distribution Width CV 17.3 % (11.6-14.6); RBC Distribution Width SD 50.4 fl (35.1-43.9); Red Blood Count 3.53 M/mm3 (4.2-5.4); White Blood Count 16.8 K/mm3 (4.4-11.0)
--- NOTE | 2021-08-30 05:26 | NURSING ---
Morning CBC reviewed with Dr Fadumo md states it is okay to remove pt's IV at this time.
--- NOTE | 2021-08-30 06:33 | PCM.PN.OB ---
Subjective Subjective Patient doing well without complaints. Tolerating PO. Ambulating and voiding without difficulty. feeding well. Denies chest pain, shortness of breath, calf pain/swelling, fevers, chills, lightheadedness. Objective Data Objective Data Vital Signs: Vital Signs Temp Pulse Resp BP Pulse Ox 99.0 F 100 16 109/85 H 93 08/30/21 04:13 08/30/21 04:13 08/30/21 04:13 08/30/21 04:13 08/29/21 21:57 Weight: 153 lb Body Mass Index (BMI) 28.9 Intake & Output: Intake and Output for Last 24 Hours 08/28/21 08/29/21 08/30/21 23:59 23:59 23:59 Intake Total 301.08 / 301.08 333 / 333 Output Total 500 / 500 Balance 301.08 / 301.08 -167 / -167 Lab / Micro Data Result Diagrams: 08/30/21 05:00 08/29/21 21:10 Labs: Laboratory Results - last 24 hr 08/29/21 21:10: WBC 9.6, RBC 4.08 L, Hgb 9.9 L, Hct 33.0 L, MCV 80.9 L, MCH 24.3 L, MCHC 30.0 L, RDW Std Deviation 49.8 H, RDW Coeff of Simon 17.3 H, Plt Count 317, MPV 11.1, Immature Gran % (Auto) 0.300, Neut % (Auto) 64.2, Lymph % (Auto) 25.5, [place] % (Auto) 8.7, Eos % (Auto) 0.8, Baso % (Auto) 0.5, Absolute Neuts (auto) 6.1, Absolute Lymphs (auto) 2.44, Nucleated RBC % 0.2 08/29/21 21:10: Blood Type O POSITIVE, Antibody Screen NEGATIVE 08/29/21 21:10: Sodium 137, Potassium 3.6, Chloride 106, Carbon Dioxide 22.0, Anion Gap 9, BUN 9, Creatinine 0.66, Estim Creat Clear Calc 92.34, Est GFR (MDRD) Af Amer 133, Est GFR (MDRD) Non-Af 110, BUN/Creatinine Ratio 13.6, Glucose 86, Calcium 9.8, Total Bilirubin 0.20, AST 34, ALT 26, Alkaline Phosphatase 237 H, Total Protein 6.6, Albumin 2.3 L, Globulin 4.3 H, Albumin/Globulin Ratio 0.5 L 08/30/21 05:00: WBC 16.8 H, RBC 3.53 L, Hgb 8.7 L, Hct 28.6 L, MCV 81.0, MCH 24.6 L, MCHC 30.4 L, RDW Std Deviation 50.4 H, RDW Coeff of Simon 17.3 H, Plt Count 281, MPV 10.8, Immature Gran % (Auto) 0.500, Neut % (Auto) 80.2 H, Lymph % (Auto) 14.0 L, [place] % (Auto) 4.8, Eos % (Auto) 0.2, Baso % (Auto) 0.3, Absolute Neuts (auto) 13.5 H, Absolute Lymphs (auto) 2.36, Nucleated RBC % 0.1 Micro: Microbiology 08/29/21 21:15 Nasal Secretion SARS-CoV-2 Antigen (Rapid) - Final ROS Constitutional Constitutional: Reports systems reviewed and no addt'l complaints, except as documented Cardiovascular Cardiovascular: Reports systems reviewed and no addt'l complaints, except as documented Respiratory/Chest Respiratory/Chest: Reports systems reviewed and no addt'l complaints, except as documented Gastrointestinal Gastrointestinal: Reports systems reviewed and no addt'l complaints, except as documented Physical Exam Const alert, oriented x3 and no apparent distress HEENT Head and Scalp: atraumatic Resp normal respiratory effort GI soft to palpation and non-tender Bimanual Exam - Vag & Uterus: uterus non-tender Uterus Palpation: uterus fundus firm (below Umbilicus) Assessment & Plan (1) Anxiety and depression: COMMENT: currently on Zoloft- is doing well (2) Vaginal delivery: COMMENT: 40 SM IAL girl Dipak mild atony (3) Anemia due to blood loss, acute: COMMENT: acute on chronic anemia, continue iron as OP PLAN: Plan s/p PPD # 1 1. routine post delivery care 2. breast feeding- support given 3. rh positive 4. rubella immune
[2021-08-30] MEDS: Acetaminophen 500 MG Tablet 1000 MG PO ×3 (06:45→20:36)
[2021-08-30] MEDS: Sertraline 50 MG Tablet PO (10:54)
[2021-08-31 02:55] VITALS: BP 114/77; PULSE 85; RESP 16; TEMP 36.6; O2SAT 97
[2021-08-31] MEDS: Acetaminophen 500 MG Tablet 1000 MG PO (07:29)
[2021-08-31 08:43] VITALS: BP 108/72; PULSE 103; RESP 16; TEMP 36.8; O2SAT 99
--- NOTE | 2021-08-31 10:12 | PCM.PN.OB ---
Subjective Subjective Patient doing well without complaints. Tolerating PO. Ambulating and voiding without difficulty. Feeding well. Denies chest pain, shortness of breath, calf pain/swelling, fevers, chills, lightheadedness. Objective Data Objective Data Vital Signs: Vital Signs Temp Pulse Resp BP Pulse Ox 98.2 F 103 H 16 108/72 99 08/31/21 08:43 08/31/21 08:43 08/31/21 08:43 08/31/21 08:43 08/31/21 08:43 Oxygen Delivery Method Room Air Weight: 153 lb Body Mass Index (BMI) 28.9 Intake & Output: Intake and Output for Last 24 Hours 08/29/21 08/30/21 08/31/21 23:59 23:59 23:59 Intake Total 301.08 / 301.08 333 / 333 Output Total 500 / 500 Balance 301.08 / 301.08 -167 / -167 Lab / Micro Data Result Diagrams: 08/30/21 05:00 08/29/21 21:10 Micro: Microbiology 08/29/21 21:15 Nasal Secretion SARS-CoV-2 Antigen (Rapid) - Final ROS Constitutional Constitutional: Denies chills, fatigue, fever(s), poor appetite or weakness Eyes Eyes: Denies blurry vision, change in vision, seeing flashes or spots in vision ENT HEENT: Denies dizziness, headache(s), loss taste/smell or sore throat Cardiovascular Cardiovascular: Denies chest pain, dizziness, dyspnea, irregular heart rhythm, palpitations or rapid heart rate Respiratory/Chest Respiratory/Chest: Denies chest tightness, cough, dyspnea or breast pain Gastrointestinal Gastrointestinal: Denies abdominal pain, constipation or vomiting Genitourinary Genitourinary: Denies dysuria or flank pain Musculoskeletal Musculoskeletal: Denies difficulty walking, joint pain, limited range of motion or numbness Neurologic Neurologic: Denies abnormal movements, abnormal speech, dizziness, numbness, seizure-like activity or syncope Psychiatric Psychiatric: Denies anxiety, behavioral changes, change in appetite, confusion, depression or suicidal thoughts Physical Exam Const alert, oriented x3 and no apparent distress General Appearance: cooperative and comfortable Resp normal respiratory effort Cardio regular rate GI normal to inspection, nondistended, normoactive bowel sounds GI Narrative: uterus is firm below umbilicus Palpation: soft Back/Spine no CVA tenderness and thoraco-lumbar ROM normal Extremity normal to inspection, no clubbing, cyanosis or edema, no calf tenderness and no pedal edema Psych mental status grossly normal, thought process normal, cooperative, affect normal, speech normal, activity/motor behavior normal, denies homicidal ideation and denies suicidal ideation Assessment & Plan (1) Vaginal delivery: COMMENT: 40 SM IAL girl Dipak mild atony PLAN: Plan s/p PPD # 2 1. routine post delivery care 2. breast feeding- support given 3. rh positive 4. rubella immune 5. dc to home today
== END 2021-08-31 11:00 | disposition home or self-care (01) | DRG 806 ==
LOC: WPOUT 21:00 → WP 21:00
PROVIDERS: Admitting Provider Obstetrics & Gynecology; PCP Family Medicine; Visit Provider Obstetrics & Gynecology
DX: O99.02 Anemia complicating childbirth (principal); Z37.0 Single live birth; D62 Acute posthemorrhagic anemia; F41.9 Anxiety disorder, unspecified; O69.81X0 Labor and delivery complicated by cord around neck, without compression, not applicable or unspecified; F32.A Depression, unspecified; O99.344 Other mental disorders complicating childbirth; Z3A.40 40 weeks gestation of pregnancy; Z87.891 Personal history of nicotine dependence; Z82.69 Family history of other diseases of the musculoskeletal system and connective tissue
CPT/HCPCS: 59025; 59050; 80053; 85025; 86850; 86900; 86901; 87426; 99218; J7120; G0378

== ENCOUNTER → 2023-05-28 | Outpatient (CLI) | payer OTHER, SELFPAY ==
[2023-06-01 21:07] LABS: Chlamydia By Nucleic Acid AMP Negative (Negative); Gonococcus By Nucleic Acid AMP Negative (Negative)
== END | disposition home or self-care (01) ==
PROVIDERS: PCP Family Medicine; Referring Provider Advanced Practice Midwife; Visit Provider Advanced Practice Midwife
DX: Z34.90 Encounter for supervision of normal pregnancy, unspecified, unspecified trimester (principal)
CPT/HCPCS: 87086; 87491; 87591

== ENCOUNTER → 2023-06-29 | Outpatient (CLI) | payer OTHER, SELFPAY ==
[2023-06-29 14:07] LABS: Absolute Lymphocyte Count 3.66 X10^3/uL (0.83-4.51); Basophil# 0.04 X10^3/uL; Basophil% 0.4 % (0-1); Eosinophil# 0.21 X10^3/uL; Eosinophils% 2.2 % (0-5); Hematocrit 38.8 % (37-47); Hemoglobin 12.6 g/dL (12.0-15.0); Lymphocyte # 3.66 X10^3/ul (0.83-4.51); Lymphocyte % 38.9 % (19-41); Mean Corp Hgb Conc 32.5 g/dL (32-36); Mean Corpuscular Hgb 29.8 pg (27.0-32.0); Mean Corpuscular Volume 91.7 fL (81-99); Mean Platelet Vol. 8.6 fl (6.2-12.0); Monocyte# 0.46 X10^3/uL; Monocyte% 4.9 % (0-10); NRBC Flagged by Analyzer 0 % (0-5); Neutrophil % 53.3 % (47-70); Platelet Count 374 K/mm3 (150-450); RBC Distribution Width CV 13.4 % (11.6-14.6); RBC Distribution Width SD 45.2 fl (35.1-43.9); Red Blood Count 4.23 M/mm3 (4.2-5.4); White Blood Count 9.4 K/mm3 (4.4-11.0)
[2023-06-29 15:02] LABS: HIV - WCH Non-Reactive (Nonreactive); Hepatitis B Surface Antigen Non-Reactive (Nonreactive); Hepatitis C Antibody Non-Reactive (Nonreactive); Rubella IgG Equiv (Nonreactive); Syphilis Antibodies Non-reactive
== END | disposition home or self-care (01) ==
LOC: PAVLAB 13:51
PROVIDERS: PCP Family Medicine; Referring Provider Advanced Practice Midwife; Visit Provider Advanced Practice Midwife
DX: Z34.90 Encounter for supervision of normal pregnancy, unspecified, unspecified trimester (principal)
CPT/HCPCS: 36415; 85025; 86703; 86762; 86780; 86803; 86850; 86900; 86901; 87340

== ENCOUNTER → 2023-07-10 | Outpatient (CLI) | payer OTHER, SELFPAY | END | disposition home or self-care (01) | LOC: LABSPEC 16:48 | PROVIDERS: PCP Family Medicine; Referring Provider Obstetrics & Gynecology; Visit Provider Obstetrics & Gynecology | DX: O23.40 Unspecified infection of urinary tract in pregnancy, unspecified trimester (principal); Z3A.00 Weeks of gestation of pregnancy not specified | CPT/HCPCS: 87086 ==

== ENCOUNTER → 2023-10-20 | Outpatient (CLI) | payer OTHER, SELFPAY ==
[2023-10-20 10:24] LABS: Absolute Lymphocyte Count 1.81 X10^3/uL (0.83-4.51); Absolute Neutrophil Count 4.6 X10^3/uL (2.0-7.7); Basophil# 0.03 X10^3/uL; Basophil% 0.4 % (0-1); Eosinophil# 0.16 X10^3/uL; Eosinophils% 2.2 % (0-5); Hematocrit 33.8 % (37-47); Hemoglobin 10.4 g/dL (12.0-15.0); Lymphocyte # 1.81 X10^3/ul (0.83-4.51); Lymphocyte % 25.4 % (19-41); Mean Corp Hgb Conc 30.8 g/dL (32-36); Mean Corpuscular Hgb 28.6 pg (27.0-32.0); Mean Corpuscular Volume 92.9 fL (81-99); Mean Platelet Vol. 9.3 fl (6.2-12.0); Monocyte# 0.54 X10^3/uL; Monocyte% 7.6 % (0-10); NRBC Flagged by Analyzer 0 % (0-5); Neutrophil # 4.56 X10^3/uL (2.7-7.7); Neutrophil % 63.8 % (47-70); Platelet Count 355 K/mm3 (150-450); RBC Distribution Width CV 13.1 % (11.6-14.6); RBC Distribution Width SD 45.1 fl (35.1-43.9); Red Blood Count 3.64 M/mm3 (4.2-5.4); White Blood Count 7.1 K/mm3 (4.4-11.0)
[2023-10-20 11:17] LABS: HIV - WCH Non-Reactive (Nonreactive); Syphilis Antibodies Non-reactive
[2023-10-20 11:31] LABS: Glucose Challenge Gest 1H 50g 99 mg/dL (70-140)
== END | disposition home or self-care (01) ==
LOC: PAVLAB 09:47 → LAB 09:54
PROVIDERS: PCP Family Medicine; Referring Provider Advanced Practice Midwife; Visit Provider Advanced Practice Midwife
DX: Z34.92 Encounter for supervision of normal pregnancy, unspecified, second trimester (principal)
CPT/HCPCS: 36415; 82950; 85025; 86703; 86780

== ENCOUNTER → 2023-12-22 | Outpatient (CLI) | payer OTHER, SELFPAY | END | disposition home or self-care (01) | LOC: LABSPEC 10:59 | PROVIDERS: PCP Family Medicine; Referring Provider Obstetrics & Gynecology; Visit Provider Obstetrics & Gynecology | DX: O09.90 Supervision of high risk pregnancy, unspecified, unspecified trimester (principal); Z3A.00 Weeks of gestation of pregnancy not specified | CPT/HCPCS: 87081 ==

== ENCOUNTER → 2024-01-13 | Outpatient (CLI) | payer OTHER, SELFPAY | END | disposition home or self-care (01) | PROVIDERS: PCP Family Medicine; Referring Provider Obstetrics & Gynecology; Visit Provider Obstetrics & Gynecology | DX: O26.843 Uterine size-date discrepancy, third trimester (principal); Z3A.00 Weeks of gestation of pregnancy not specified | CPT/HCPCS: 76816 ==

== ENCOUNTER 2024-01-18 07:16 | Inpatient (IN) | payer OTHER, SELFPAY ==
[2024-01-18] VITALS (38 sets, daily range): BP systolic 99–140; BP diastolic 62–90; PULSE 26–111; RESP 15–18; TEMP 36.4–37.1; O2SAT 75–100; BMI 29.0
--- NOTE | 2024-01-18 07:24 | HP.PCM.OB_ITS ---
HPI - General General Date of Admission: 01/18/24 Date of Service: 01/18/24 HPI Narrative NANCY HARRIS, is a 33 F 41.1 weeks who presents to unit in active labor. /2 on admission with bulging membranes. requesting epidural. Maternal Data Information CALLUM Calculator Estimated Delivery Date Method Current WG Current Estimate 01/10/24 Ultrasound #1 41w 1d Other Estimates 01/02/24 LMP (Certain) 42w 2d Final CALLUM: 01/10/24 Final CALLUM Source: >20 weeks Gestational age: 41.1 [facility] Medical History Former smoker Anemia due to blood loss, acute Vaginal delivery Depression Anxiety Home Medications ?Medication ?Instructions ?Recorded ?Last Taken ?Type multivitamin no.47-iron fum 27 1 cap PO DAILY Check with primary 01/08/21 01/16/24 07:19 History mg-folate no.1 1 mg-dha 300 mg doctor 1 cap capsule (PNV-DHA) ferrous sulfate 325 mg (65 mg 325 mg PO DAILY anemia 11/03/23 01/16/24 07:18 History iron) tablet 325 mg promethazine 25 mg tablet 25 mg PO Q6H PRN nausea and 12/10/23 Unknown Rx vomiting #30 tabs Allergy/AdvReac Type Severity Reaction Status Date / Time Sulfa (Sulfonamide Allergy Intermediate Hives Verified 01/18/24 07:17 Antibiotics) Family History Mother Myotonic muscular dystrophy Grandfather Myotonic muscular dystrophy Surgical History Hx of cholecystectomy Social History adopted: No household members: spouse and children housing: house number of children: 2 current occupational status: employed 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 current occupational exposures/hazards: No pets and animals: Yes (Avoid litterbox) pets and animals: cat(s) history of recent travel: No sexually active: Yes Smoking Status: Former smoker second hand exposure: Yes alcohol intake: never substance use type: does not use well-balanced diet: daily or most days caffeine: Yes Type: carbonated beverages Number of servings: 1 and coffee Number of servings: 1 eating out: 1-3 times/week during the past year weight has: remained stable what type of physical activity do you participate in: none tao/samaritan: None seatbelt use: always do you feel safe at home: Yes additional social history: - Jono History 3 Elective abortions Hx Para 2 Spontaneous abortions Hx # Term Pregnancies Ectopic pregnancies Hx # Pregnancies Multiple births # of living children 2 Past Pregnancies Del. Date Name GA/Weeks Outcome Route Bth Weight Gen Labor Lgth Anesthesia Del Locatn Provider FOB 11/12/17 Haily 42 live - full term 6lbs 12oz Female over 36 hours epidural [facility] Jono 08/29/21 Dipak 40 live - full term 6lbs 13oz Female [facility] Mariposa De La Cruz Delivery Date: 11/12/17 Last Updated by: Madeleine Greer IoL Delivery Date: 08/29/21 Last Updated by: Anayeli Reyez see problem list for complications, and IAL SM 40 girl Dipak Visit Details Expected Delivery Route/Plan Labor Preferences- CB/BF classes: [] labor support person: [] labor intervention preferences: [] pain management options preferred: [] cut cord/dad catch: [] : [] PP control planned: [] discussed possible routes of delivery and associated risks: [] special requests: [] Plans Covid status: [] Flu vaccine: [] Tdap vaccine: to give next visit Rhogam: na LARC form signed: declined movement and labor precautions reviewed. Problem list reviewed and updated with the most current plan of care details and appropriate orders placed. Relevant counseling for the gestational age provided. Continue routine care and follow up unless otherwise noted in visit notes/problem list details OB Flowsheet Initial Weight: 130 lb Date -?-?-?-?-?-?-?-?-?-?-?-?- EGA Weight BP Urine Prot -?-?-?-?-?-?-?-?-?-?-?-?- Glucose FHR FuHt Pres Dilation -?-?-?-?-?-?-?-?-?-?-?-?- Effaced St Visit Note 05/28/23 -?-?-?-?-?-?-?-?-?-?-?-?- 7w 4d 130 lb 2 oz (+2 oz) 97/68 -?-?-?-?-?-?-?-?-?-?-?-?- 150 -?-?-?-?-?-?-?-?-?-?-?-?- KW- not Cons wit h dates. CALLUM adjusted. Requests NIPT. 06/26/23 -?-?-?-?-?-?-?-?-?-?-?-?- 11w 5d 133 lb 2 oz (+3 lb 2 oz) 118/72 Negative -?-?-?-?-?-?-?-?-?-?-?-?- Negative 160 -?-?-?-?-?-?-?-?-?-?-?-?- Sm- no vb lof 16 0 07/21/23 -?-?-?-?-?-?-?-?-?-?-?-?- 15w 2d 133 lb (+3 lb) 112/78 Negative -?-?-?-?-?-?-?-?-?-?-?-?- Negative 150 -?-?-?-?-?-?-?-?-?-?-?-?- KW- no vb/crampi ng. declines AFP testing. [facility] on 08/2708/25/23 -?-?-?-?-?-?-?-?-?-?-?-?- 20w 2d 138 lb 8 oz (+8 lb 8 oz) 106/70 Negative -?-?-?-?-?-?-?-?-?-?-?-?- Negative 152 -?-?-?-?-?-?-?-?-?-?-?-?- JV- no complaint s today. 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 has anatomy scan due 08/27 in [place] 09/22/23 -?-?-?-?-?-?-?-?-?-?-?-?- 24w 2d 143 lb (+13 lb) 103/68 Negative -?-?-?-?-?-?-?-?-?-?-?-?- Negative 140 24 -?-?-?-?-?-?-?-?-?-?-?-?- KW- no vb/crampi ng. good fm. over all feeling good.28 week labs discussed. 10/20/23 -?-?-?-?-?-?-?-?-?-?-?-?- 28w 2d 146 lb (+16 lb) 112/74 Negative -?-?-?-?-?-?-?-?-?-?-?-?- Negative 145 28 -?-?-?-?-?-?-?-?-?-?-?-?- SM- no vb lof go od fm no regular ctx wants tdap next time 11/03/23 -?-?-?-?-?-?-?-?-?-?-?-?- 30w 2d 148 lb 4 oz (+18 lb 4 oz) 106/69 Negative -?-?-?-?-?-?-?-?-?-?-?-?- Negative 155 30 -?-?-?-?-?-?-?-?-?-?-?-?- SM- n vb lof goo d fm n orelugar ctx larc signed 11/17/23 -?-?-?-?-?-?-?-?-?-?-?-?- 32w 2d 150 lb 2 oz (+20 lb 2 oz) 105/69 Negative -?-?-?-?-?-?-?-?-?-?-?-?- Negative 135 32 -?-?-?-?-?-?-?-?-?-?-?-?- KW- no vb/lof/ct x. good fm. repeat cbc ordered. 12/01/23 -?-?-?-?-?-?-?-?-?-?-?-?- 34w 2d 151 lb (+21 lb) 116/72 Negative -?-?-?-?-?-?-?-?-?-?-?-?- Negative 140 34 -?-?-?-?-?-?-?-?-?-?-?-?- SM- novb lof goo d fm no regular ctx 12/22/23 -?-?-?-?-?-?-?-?-?-?-?-?- 37w 2d 150 lb 4 oz (+20 lb 4 oz) 115/76 Negative -?-?-?-?-?-?-?-?-?-?-?-?- Negative 142 37 Cephalic -?-?-?-?-?-?-?-?-?-?-?-?- JV- GBS collecte d. she declines pelvic exam. head is cephalic but off to patient right. She has a h/o delivering fast. we touched on option of 39 week IOL. she will think about this. jUst getting over COVID. 12/29/23 -?-?-?-?-?-?-?-?-?-?--?-?- 38w 2d 151 lb (+21 lb) 110/78 Negative -?-?-?-?-?-?-?-?-?-?-?-?- Negative 140 37 Cephalic 1 -?-?-?-?-?-?-?-?-?-?-?-?- 50 -2 KW- no vb/ lof. having nightly contractions. good fm. 01/05/24 -?-?-?-?-?-?-?-?-?-?-?-?- 39w 2d 152 lb 8 oz (+22 lb 8 oz) 115/75 Negative -?-?-?-?-?-?-?-?-?-?-?-?- Negative 140 37 Cephalic -?-?-?-?-?-?-?-?-?-?-?-?- SM- no vb lof go od fm nor egualr ctx 01/12/24 -?-?-?-?-?-?-?-?-?-?-?-?- 40w 2d 150 lb 4 oz (+20 lb 4 oz) 107/77 Negative -?-?-?-?-?-?-?-?-?-?-?-?- Negative 165 36 Cephalic 1 -?-?-?-?-?-?-?-?-?-?-?-?- 70 -2 JV- growth scan not until tomorrow. GAYLE today JV- growth scan not until to vaz. GAYLE today is 15. IOL at 41 weeks if growth scan looks normal. this will likely be thursday am. NST FHR Rate Baby A Baseline: 120 Variability:: Moderate Accelerations:: 15 x 15 Decelerations:: None NST Reactive:: Yes FHR Category:: Category I Uterine Activity:: 4-5 minutes ROS Constitutional Constitutional: Denies change in weight, fatigue, fever(s), headache(s), poor appetite or weakness Eyes Eyes: Denies blurry vision, change in vision, floaters, seeing flashes or spots in vision ENT HEENT: Denies dizziness, headache(s), loss taste/smell or sore throat Cardiovascular Cardiovascular: Denies chest pain, dizziness, dyspnea, irregular heart rhythm, lightheadedness, palpitations or rapid heart rate Respiratory/Chest Respiratory/Chest: Denies change in mental status, chest tightness, cough, dyspnea or breast pain Gastrointestinal Gastrointestinal: Denies anorexia, chewing difficulty, constipation, diarrhea or weight changes Genitourinary Genitourinary: Denies difficulty urinating, dysuria, flank pain, genital pain, urinary frequency or urinary urgency Musculoskeletal Musculoskeletal: Denies back pain, difficulty walking, extremity pain, joint pain, muscle cramps or muscle weakness Integumentary Integumentary: Denies lesions or unusual bruising Neurologic Neurologic: Denies abnormal movements, abnormal speech, dizziness, numbness, seizure-like activity, syncope or weakness Psychiatric Psychiatric: Denies behavioral changes, change in appetite, confusion, depression, homicidal ideation, suicidal ideation or suicidal thoughts Endocrine Endocrinology: Denies excessive sweating, polydipsia or polyuria Hematologic/Lymphatic Hematologic/Lymphatic: Denies anemia Allergic/Immunologic Allergic/Immunologic: Denies itchy eyes, lip swelling, throat swelling, tongue swelling or wheezing Vital Signs Vital Signs Vital Signs: 01/18/24 07:10 01/18/24 07:10 01/18/24 07:10 Temperature 97.5 F L Temperature Source Temporal Pulse Rate Respiratory Rate 18 Blood Pressure BP Systolic BP Diastolic 01/18/24 07:14 01/18/24 07:14 Temperature Temperature Source Pulse Rate 111 H Respiratory Rate Blood Pressure 115/83 H BP Systolic 115 BP Diastolic 83 Weight Weight: 149 lb Body Mass Index (BMI) 29.0 Physical Exam Const alert, oriented x3 and no apparent distress General Appearance: cooperative Orientation / Consciousness: awake HEENT normocephalic Neck full ROM Lymph Lymphatic: no lymphadenopathy noted Chest inspection of chest normal Resp normal respiratory effort and normal air movement Effort and Inspection: able to speak in complete sentences and symmetric chest movement GI soft to palpation and non-tender Inspection: gravid Palpation: soft; Negative for tender external exam normal Manual OB Exam: dilated 7, effaced 80 and station -2 Back/Spine normal to inspection Extremity normal to inspection and full ROM Skin no rashes or lesions noted Psych mental status grossly normal Appearance: grossly normal Speech: normal speech Labs Labs Labs: Blood Type O POSITIVE Antibody Screen NEGATIVE Hct 33.8 % (37-47) L Hgb 10.4 g/dL (12.0-15.0) L Obstetrics Ultrasound Syphilis Total Ab Non-reactive Rubella IgG Antibody Equiv (Nonreactive) Hep Bs Antigen Non-Reactive (Nonreactive) Hepatitis C Antibody Non-Reactive (Nonreactive) Chlamydia DNA (TYE) Negative (Negative) N.gonorrhoeae DNA (TYE) Negative (Negative) HIV 1&2 Antibody Non-Reactive (Nonreactive) Glucose 1 Hr 50 gm 99 mg/dL (70-140) Rhogam given: No Assessment & Plan (1) Active labor: PLAN: Patient presents IAL, plan expectant management for , pitocin/AROM PRN if needed. Pain management: plans epidural. GBS neg. Management of any complications: none I have reviewed the [facility] and made any clinically relevant updates. Dr Schmitz aware of admission and plan. agrees with above (2) Uterine size-date discrepancy, third trimester: COMMENT: growth US ordered (3) Anemia affecting in third trimester: COMMENT: iron added , repeat cbc in 1 month (4) Rubella non-immune status, antepartum: COMMENT: offer MMR pp (5) Supervision of high-risk : COMMENT: PRR, , CALLUM 01/10/24 boy ZANE solomon Avery - Jono (6) : QUALIFIERS: Weeks of gestation: 40 weeks Qualified Code(s): Z3A.40 - 40 weeks gestation of COMMENT: GBS neg, NIPT low risk, had carrier testing previously. nl anatomy (7) Anxiety and depression: COMMENT: currently on Zoloft- is doing well Charges/Coding Multi Select Codes Urinary/Genital Urinary/Genital CPT Codes: No Charge
[2024-01-18] MEDS: Lactated Ringers 1,000 ML 50 ML IV (07:26)
[2024-01-18 07:34] LABS: Absolute Lymphocyte Count 1.91 X10^3/uL (0.83-4.51); Absolute Neutrophil Count 9.8 X10^3/uL (2.0-7.7); Basophil# 0.03 X10^3/uL; Basophil% 0.2 % (0-1); Eosinophil# 0.02 X10^3/uL; Eosinophils% 0.2 % (0-5); Hematocrit 41.4 % (37-47); Hemoglobin 13.5 g/dL (12.0-15.0); Lymphocyte # 1.91 X10^3/ul (0.83-4.51); Lymphocyte % 15.4 % (19-41); Mean Corp Hgb Conc 32.6 g/dL (32-36); Mean Corpuscular Hgb 28.4 pg (27.0-32.0); Mean Platelet Vol. 10.1 fl (6.2-12.0); Monocyte# 0.66 X10^3/uL; Monocyte% 5.3 % (0-10); NRBC Flagged by Analyzer 0 % (0-5); Neutrophil # 9.76 X10^3/uL (2.7-7.7); Neutrophil % 78.6 % (47-70); Platelet Count 346 K/mm3 (150-450); RBC Distribution Width CV 17.4 % (11.6-14.6); RBC Distribution Width SD 54.4 fl (35.1-43.9); Red Blood Count 4.76 M/mm3 (4.2-5.4); White Blood Count 12.4 K/mm3 (4.4-11.0)
[2024-01-18] MEDS: Oxytocin 10 UNITS/ML Vial IM (08:17)
[2024-01-18] MEDS: Methylergonovine 0.2 MG/ML Ampul IM (08:19)
[2024-01-18] MEDS: Oxytocin 15 Units/NS 250ml 15 UNITS/250 ML IV.SOLN 83 UNITS IV (08:30)
[2024-01-18] MEDS: Lidocaine 1% (20 ml mdv) 20 ML Vial INFILT (08:35)
[2024-01-18 08:38] LABS: Syphilis Antibodies Non-reactive
--- NOTE | 2024-01-18 08:38 | OB.VAGDELI_ITS ---
Assessment & Plan (1) Vaginal delivery: COMMENT: 41 KW IAL Lance Solomon mild atony (2) Active labor: (3) Uterine size-date discrepancy, third trimester: COMMENT: growth US ordered (4) Anemia affecting in third trimester: COMMENT: iron added , repeat cbc in 1 month (5) Rubella non-immune status, antepartum: COMMENT: offer MMR pp (6) Supervision of high-risk : COMMENT: PRR, , CALLUM 01/10/24 lance solomon, ZANE Johansen, Dipak - Jono (7) : QUALIFIERS: Weeks of gestation: 40 weeks Qualified Code(s): Z3A.40 - 40 weeks gestation of COMMENT: GBS neg, NIPT low risk, had carrier testing previously. nl anatomy (8) Anxiety and depression: COMMENT: currently on Zoloft- is doing well Maternal Data Information CALLUM Calculator Estimated Delivery Date Method Current WG Current Estimate 01/10/24 Ultrasound #1 41w 1d Other Estimates 01/02/24 LMP (Certain) 42w 2d Final CALLUM: 01/10/24 Final CALLUM Source: [place] >20 weeks Gestational age: 41.1 Vaginal Delivery Maternal Presentation Maternal Presentation: Active Labor Maternal Presentation: Presented to unit for active labor. Vaginal Delivery Information Procedure Performed: Spontaneous Vaginal Delivery Surgeon/Practitioner: Temitope Middleton Date of Procedure: 01/18/24 Pre-Procedure Diagnosis: see problem list Post-Procedure Diagnosis: same Type of anesthesia: Local with 1% Lidocaine Estimated Blood Loss: 400 Time of Delivery: 08:10 Findings Description of procedure: Progressed well to 10cm dilated and made steady progress with effective maternal pushing. Delivered the head in CHAPO presentation. The head was delivered atraumatically and a tight nuchal cord was identified and infant delivered through. The anterior and posterior shoulders delivered without complication followed by the rest of the infant and the was placed on the maternal abdomen. Delayed cord clamping was employed for approximately 3 minutes. Cord was clamped and cut and gentle traction was applied to the cord and the placenta delivered spontaneously. Immediately following, it was noted to be intact with a 3 vessel cord. Uterine bleeding brisk, IV and IM pitocin, and IM Methergine given. bleeding stable with medications and uterine massage . The perineum and vagina were inspected and noted to have a first degree laceration which was repaired with 3-0 Vicryl in the usual fashion. EBL was 400cc. Patient and infant tolerated delivery well. Apgars 9/9. Dr Galan notified of vaginal delivery and orders reviewed. Physician agrees with current plan of care. Presentation: Vertex Amniotic Membrane Rupture Type: Artificial Amniotic Fluid Description: Clear Placenta Disposition: [facility] Specimen collected: No Cord Vessel Description: 3 Vessels Cord Entanglement: Around neck x 1, tight Infant A Gender: Male (1 minute): 9 (5 minute): 9 Delayed Cord Clamping: Yes Practice Administrator billing customer service representative: No Post Vaginal Deli Medications given after delivery: IV Pitocin, IM Pitocin and IM Methergin Episiotomy Description: None Laceration: 1st degree Complication Complications: No Multi Select Codes Urinary/Genital Urinary/Genital CPT Codes: 95251 Vaginal Delivery [facility]
--- NOTE | 2024-01-18 08:48 | DCINST_ITS ---
Discharge Instructions Diet Discharge Diet: No restrictions Activity Discharge Activity: Return to Normal Activity May resume sexual activity in: 6-8 weeks Dressing / Incision Call your doctor if you observe: Fever of 101 or Higher, Coldness, Increased Pain, Numbness or Tingling, Change in Color, Inability to urinate, Inability to have a bowel movement, Using more than 1 pad per hour, Shortness of breath, Dizziness, Fainting spells, Swelling in the ankles, Chest pain, Increased palpitations (irregular heartbeat), Calf discomfort and Uncontrolled pain Follow Up Care Please Follow Up With: Temitope Middleton CNM When: Please call the office to schedule your follow up appointment in 6 weeks. If you had high blood pressure please call to schedule an appointment in 2 weeks. Test Results: Test results from this visit will be discussed in further detail at your follow- up appointment, if applicable. Discharge Plan Admission Admit Date/Time: 01/18/24 07:16 Attending Provider: Temitope Middleton Primary Care Provider: Miriam Ramsey Consulting Providers: Deysi Schmitz Discharge Orders/Prescriptions Prescriptions: No Action PNV-DHA 27 mg iron-1 mg -300 mg capsule 1 cap PO DAILY ferrous sulfate 325 mg (65 mg iron) tablet 325 mg PO DAILY promethazine 25 mg tablet 25 mg PO Q6H PRN (Reason: nausea and vomiting) Qty: 30 0RF Referrals / Follow Up: Miriam Ramsey, [Primary Care Provider] -
[2024-01-18] MEDS: Acetaminophen 500 MG Tablet 1000 MG PO ×3 (09:29→22:23)
[2024-01-19 04:27] VITALS: BP 94/62; PULSE 88; RESP 16; TEMP 36.2
[2024-01-19 04:28] VITALS: BP 94/62; PULSE 88
[2024-01-19] MEDS: Acetaminophen 500 MG Tablet 1000 MG PO ×2 (04:29→11:29)
[2024-01-19 04:45] LABS: Absolute Lymphocyte Count 2.97 X10^3/uL (0.83-4.51); Absolute Neutrophil Count 6.9 X10^3/uL (2.0-7.7); Basophil# 0.04 X10^3/uL; Basophil% 0.4 % (0-1); Eosinophil# 0.17 X10^3/uL; Eosinophils% 1.5 % (0-5); Hematocrit 32.2 % (37-47); Hemoglobin 10.3 g/dL (12.0-15.0); Lymphocyte # 2.97 X10^3/ul (0.83-4.51); Mean Corpuscular Hgb 28.6 pg (27.0-32.0); Mean Corpuscular Volume 89.4 fL (81-99); Mean Platelet Vol. 9.8 fl (6.2-12.0); Monocyte# 0.84 X10^3/uL; Monocyte% 7.6 % (0-10); NRBC Flagged by Analyzer 0 % (0-5); Neutrophil # 6.93 X10^3/uL (2.7-7.7); Neutrophil % 63.1 % (47-70); Platelet Count 297 K/mm3 (150-450); RBC Distribution Width CV 17.5 % (11.6-14.6); RBC Distribution Width SD 57.6 fl (35.1-43.9)
[2024-01-19 07:58] VITALS: BP 111/74; PULSE 88
[2024-01-19 07:59] VITALS: BP 111/74; PULSE 95; RESP 14; TEMP 36.6; O2SAT 98
[2024-01-19] MEDS: Ibuprofen 600 MG Tablet PO (08:09)
[2024-01-19] MEDS: Benzocaine/Lanolin/Aloe Vera 85 GM Spray 1 SPRAY TOPICAL (08:09)
--- NOTE | 2024-01-19 08:16 | PCM.PN.OB ---
Subjective Subjective Patient doing well without complaints. Tolerating PO. Ambulating and voiding without difficulty. Feeding well. Denies chest pain, shortness of breath, calf pain/swelling, fevers, chills, lightheadedness. Objective Data Objective Data Vital Signs: Vital Signs Temp Pulse Resp BP Pulse Ox O2 Del Method 97.9 F 95 14 111/74 98 Room Air 01/19/24 07:59 01/19/24 07:59 01/19/24 07:59 01/19/24 07:59 01/19/24 07:59 01/19/24 07:59 Oxygen Delivery Method Room Air Weight: 149 lb Body Mass Index (BMI) 29.0 Intake & Output: Intake and Output for Last 24 Hours 01/17/24 01/18/24 01/19/24 23:59 23:59 23:59 Intake Total 416.58 / 416.58 Output Total 1050 / 1050 Balance -633.42 / -633.42 Lab / Micro Data Attestation: I reviewed the patient's lab results. 01/19/24 04:33 Labs: Laboratory Results - last 24 hr 01/18/24 07:25: Syphilis Total Ab Non-reactive, Blood Type O POSITIVE, Antibody Screen NEGATIVE 01/19/24 04:33: WBC 11.0, RBC 3.60 L, Hgb 10.3 L, Hct 32.2 L, MCV 89.4, MCH 28.6, MCHC 32.0, RDW Std Deviation 57.6 H, RDW Coeff of Simon 17.5 H, Plt Count 297, MPV 9.8, Immature Gran % (Auto) 0.400, Neut % (Auto) 63.1, Lymph % (Auto) 27.0, Charlton % (Auto) 7.6, Eos % (Auto) 1.5, Baso % (Auto) 0.4, Absolute Neuts (auto) 6.9, Absolute Lymphs (auto) 2.97, Nucleated RBC % 0 ROS Constitutional Constitutional: Reports systems reviewed and no addt'l complaints, except as documented; Denies anorexia or headache(s) Cardiovascular Cardiovascular: Reports systems reviewed and no addt'l complaints, except as documented; Denies dizziness, dyspnea, nausea or tachypnea Respiratory/Chest Respiratory/Chest: Reports systems reviewed and no addt'l complaints, except as documented; Denies cough, dyspnea, shortness of breath at rest or tachypnea Gastrointestinal Gastrointestinal: Reports systems reviewed and no addt'l complaints, except as documented; Denies abdominal pain, constipation or nausea Genitourinary Genitourinary: Reports systems reviewed and no addt'l complaints, except as documented; Denies burning urination, difficulty urinating, dysuria, urinary frequency or urinary incontinence Musculoskeletal Musculoskeletal: Reports systems reviewed and no addt'l complaints, except as documented Integumentary Integumentary: Reports systems reviewed and no addt'l complaints, except as documented Neurologic Neurologic: Reports systems reviewed and no addt'l complaints, except as documented; Denies abnormal speech, dizziness or headache(s) Psychiatric Psychiatric: Reports systems reviewed and no addt'l complaints, except as documented Endocrine Endocrinology: Reports systems reviewed and no addt'l complaints, except as documented Hematologic/Lymphatic Hematologic/Lymphatic: Reports systems reviewed and no addt'l complaints, except as documented Physical Exam Const alert, oriented x3 and no apparent distress Neck full ROM Resp normal respiratory effort, normal air movement and no retractions Effort and Inspection: able to speak in complete sentences and symmetric chest movement GI soft to palpation Bladder / Kidney Exam: bladder normal to palpation Uterus Palpation: uterus fundus firm Extremity normal to inspection and full ROM Psych mental status grossly normal, thought process normal and cooperative Assessment & Plan (1) Vaginal delivery: COMMENT: 41 KW IAL Marco A Almanzar mild atony PLAN: s/p PPD # 1 1. routine post delivery care 2. breast feeding- support given 3. rh positive 4. rubella immune 5. discharge home (2) Active labor: (3) Uterine size-date discrepancy, third trimester: COMMENT: growth US ordered (4) Anemia affecting in third trimester: COMMENT: iron added , repeat cbc in 1 month (5) Rubella non-immune status, antepartum: COMMENT: offer MMR pp (6) Supervision of high-risk : COMMENT: PRR, , CALLUM 01/10/24 ZANE sanchez, Dipak - Jono (7) : QUALIFIERS: Weeks of gestation: 40 weeks Qualified Code(s): Z3A.40 - 40 weeks gestation of COMMENT: GBS neg, NIPT low risk, had carrier testing previously. nl anatomy (8) Anxiety and depression: COMMENT: currently on Zoloft- is doing well Charges/Coding Multi Select Codes Urinary/Genital Urinary/Genital CPT Codes: No Charge
--- NOTE | 2024-01-19 11:06 | CASEMGMT ---
Social Work Assessment Labor and Delivery Unit Patient Address: [address] [place] [address] Phone number: [phone] Date of Referral: 01/18/24 Time of Referral:? 926 Referred By: Temitope Middleton Date of Intervention: ??01/19/24 Time of Intervention:? 914 Reason for Referral:? hx of anxiety and depression Sw completed chart review and acknowledges social work consult due to maternal history of anxiety and depression. Sw presented to bedside and introduced self to mother of baby (JOHAN- Karmen). Father of baby (AUBREY- Jono) present but asleep on couch during duration of assessment. History obtained from: medical records and mother of baby (JOHAN)??? Household composition: Currently residing in the family home is JOHAN, AUBREY, their two older children: Haily (6) and Dipak (2). [place] baby to be added to household when ready for discharge. MOB states that there are no housing concerns. Patient's parent/guardian status:? MOB states that she and AUBREY have been together since she was 14. MOB denies domestic violence or intimate partner violence. This is third baby for both parents together. ? Medical History: ?JOHAN is 33 year old female who is 3, para 2- now 3 following labor and delivery. JOHAN received routine care during with [facility]. JOHAN presented to hospital and delivered baby via vaginal delivery on 01/18/24 at 41 weeks gestation. [place] baby, Yohan De La Cruz, was born weighing 6lb 14oz with apgars of 9 and 9 at one and five minutes of life, respectfully. MOB states that breast feeding is going well and baby will be followed by Dr. Green. Educational Status:? Both parents graduated high school, no college education. Financial Status: Both parents are gainfully employed. FOErnesto works for his own company as an sap payroll consultant. JOHAN works at [employer]. Supplies: Parents have obtained all necessary baby supplies, including: car seat, safe sleep space, clothes, diapers and wipes. Childcare/Caregiver(s):? MOB will be the primary caregiver to baby. When both parents are working they have grandparents who will provide childcare. Transportation:?? Both parents have their drivers license and reliable means of transportation, no barriers. Programs/Agencies Involved: ???Parents are not connected to any community resources that assist them financially as they are over income. Children Services/Legal Issues:???No history of children services, no issues or concerns warranting referral to be made at this time. Behavioral Health Issues: ??Mental Health History:??JOHAN reports that AUBREY does not have any mental health diagnoses. MOB states that she has history of anxiety and depression. JOHAN has experienced panic attacks, and was prescribed zoloft previously by her PCP. MOB denies experiencing any mood or anxiety issues in the past. Substance Use History:??MOB denies substance use prior to and during . Family History:?MOB denies family history of addiction or significant mental health diagnoses. ? Drug Screens: No drug screens observed in chart review. Family/Social Stressors:? JOHAN denies any issues, concerns or stressors at this time. Support Systems: FOB and both sets of grandparents. Depression/Shaken Baby/Safe Sleeping: Sw educated MOB on signs and symptoms of baby blues and mood and anxiety disorders to be mindful of during this period. MOB states that she has been on zoloft for a long time, but stopped taking during . MOB states that at this time she feels good and is extremely happy that baby is here. MOB states that if she were to struggle with her mental health during this period FOB would be able to recognize that and would know how to help and support her. ASSESSMENT:? MOB and baby admitted following labor and delivery of . MOB states that her mother is helping care for her older children while she, FOB and baby are still at hospital. MOB made eye contact and participated openly during completion of psychosocial assessment. JOHAN has mental health history positive for anxiety and depression including panic attacks. MOB states that panic attacks stem from a lot of changes at her work, but reports that she has healthy and safe coping mechanisms. MOB knowledgeable of mood and anxiety disorders to look out for. MOB has everything she needs for baby and natural supports in place. PLAN:?? No other services requested or indicated. MOB and baby to be discharged when medically ready. Parents were provided literature regarding: signs and symptoms of baby blues and mood and anxiety disorders, Help Me Grow, shaken baby prevention, ABCs of safe sleep and a list of county resources that are available for them should any needs present themselves. Carlos Alberto Haile, HELICOPTER P[employer] INSTRUCTOR, [employer]
[2024-01-19 12:37] VITALS: BP 111/76; PULSE 86; RESP 18; TEMP 36.9; O2SAT 97
== END 2024-01-19 13:13 | disposition home or self-care (01) | DRG 807 ==
PROVIDERS: Admitting Provider Advanced Practice Midwife; PCP Family Medicine; Referring Provider Obstetrics & Gynecology; Visit Provider Advanced Practice Midwife
DX: O48.0 Post-term pregnancy (principal); Z37.0 Single live birth; O99.344 Other mental disorders complicating childbirth; F32.A Depression, unspecified; F41.9 Anxiety disorder, unspecified; O26.843 Uterine size-date discrepancy, third trimester; Z87.891 Personal history of nicotine dependence; Z3A.41 41 weeks gestation of pregnancy; Z90.49 Acquired absence of other specified parts of digestive tract; O99.02 Anemia complicating childbirth; O69.1XX0 Labor and delivery complicated by cord around neck, with compression, not applicable or unspecified; O70.0 First degree perineal laceration during delivery
CPT/HCPCS: 59050; 85025; 86780; 86850; 86900; 86901; 99221; J7120; G0378